=== PATIENT | female | born 1960 | race Caucasian/White ===

== ENCOUNTER 2020-03-13 17:50 | Emergency (ER) | payer OTHER, SELFPAY ==
[2020-03-13 17:54] VITALS: BP 145/89; PULSE 82; RESP 20; TEMP 37.3; O2SAT 99
--- NOTE | 2020-03-13 17:56 | ED.FEMALEGU ---
HPI - Female Genitourinary General Chief complaint: Nausea/Vomiting/Diarrhea Stated complaint: vomitting since 2am/back pain Time Seen by Provider: 03/13/20 18:10 Source: patient and RN notes reviewed Mode of arrival: ambulatory Limitations: no limitations History of Present Illness HPI Narrative: 60-year-old female presents with mid upper back pain, right scapula pain, nausea, vomiting. Reports the back pain started approximately 1 week ago, persistent vomiting started at 2:00 this morning. She denies dysuria, hematuria, urgency, frequency, fevers. MD elicited complaint: other (Mid back pain, vomiting) Related Data Allergies Allergy/AdvReac Type Severity Reaction Status Date / Time azithromycin Allergy Unknown Nausea Verified 03/13/20 18:09 levofloxacin Allergy Unknown Unknown Verified 03/13/20 18:09 Review of Systems Review of Systems: Narrative: CONSTITUTIONAL: Reports malaise. Denies chills, sweats, or fever. CARDIOVASCULAR: Denies chest pain, palpitations, or edema. RESPIRATORY: Denies cough or dyspnea. GASTROINTESTINAL: Denies abdominal pain, diarrhea. Reports nausea, vomiting, GENITOURINARY: Denies frequency, urgency, dysuria or hematuria. SKIN: Denies bruising, MUSCULOSKELETAL: Reports mid upper back pain, right scapular pain NEUROLOGIC: Denies numbness, weakness All systems reviewed & are unremarkable except as noted in HPI and below PMFSH Social History Social History Smoking status: Never smoker Second hand tobacco smoke exposure: No Alcohol intake: never Substance use: never Substance use type: does not use Gender identity (if verbalized by the patient): Female Spiritual care concerns: No Agree to blood products: Yes Comments At time of signature, agree with nursing past medical, surgical, social and family history. There is no relevant family history pertinent to the presenting complaint Exam Narrative: Exam Narrative: GENERAL: Well-appearing, well-nourished, and in no acute distress. HEAD: Normocephalic. EYES: PERRLA, conjunctivae clear. NECK: Supple. No lymphadenopathy CHEST: Clear to auscultation. No respiratory distress. HEART: Slow rate. No murmur heard. Normal peripheral pulses. ABDOMEN: Soft, nontender upon palpation, nondistended, normal active bowel sounds, no palpable or pulsatile masses, no guarding. No CVA tenderness Musculoskeletal: No midline back tenderness palpation, no bruising, redness SKIN: Warm, dry, no rash. NEURO: Alert and oriented x3. PSYCH: Normal mood and affect Course Course Emergency Course: Patient is aware of, understands and agrees to be seen in the emergency department in transfer via EMS. Portions of this record may have been created with voice recognition software Vital Signs Vital signs: Reviewed. Transfer Transfered to: [facility] [facility] Transportation: [facility] Transfer rationale: Abnormal EKG, atrial fibrillation, ST depression, nausea, upper back pain Accepting physician: GUADALUPE Rowley Transfer comments: [facility] MDM - Female Genitourinary MDM Narrative Medical decision making narrative: Patient's history, exam, EKG findings warrant further evaluation emergency department. Patient is being transferred via [facility] Differential Diagnosis Differential diagnosis: Likely other (Cardiac event, pyelonephritis, nephrolithiasis, musculoskeletal pain) Critical Care Time Critical Care Time Critical Care Time: No Discharge Plan Discharge Clinical Impression: Abnormal ECG Patient Disposition: Acute Care Hospital Condition: Stable Prescriptions: No Action buspirone 15 mg tablet 15 mg PO DAILY Qty: 90 RF: 1 omeprazole 20 mg capsule,delayed release(DR/EC) 20 mg PO DAILY Qty: 90 RF: 0 lisinopril 30 mg tablet 30 mg PO DAILY Qty: 90 RF: 3 desvenlafaxine succinate [Pristiq] 100 mg tablet extended release 24 hr 100 mg PO DAILY Qty: 90 RF: 0 Follow-up/Referrals: Oly Landa
[2020-03-13] MEDS: ONDANSETRON HCL ODT 4 MG TABLET PO (18:20)
[2020-03-13] MEDS: ASPIRIN 81 MG CHEWABLE TABLET 324 MG PO (18:27)
--- NOTE | 2020-03-13 18:31 | ECG_ITS ---
Measurements Intervals [place] Rate: 58 P: CT: 0 QRS: 30 QRSD: 85 T: 51 QT: 409 QTc: 403 Interpretive Statements SINUS RHYTHM CHANGES TO JUNCTIONAL RHYTHM BORDERLINE ST ABNORMALITY- ANTEROLATERAL LEADS BASELINE WANDER- I, II, AVR, AVL, AVF, V1-V6 ABNORMAL ECG Electronically Signed On 03-13-2020 20:51:24 CDT by Abraham Ramirez D.O.
== END 2020-03-13 18:39 | disposition short-term general hospital (02) ==
PROVIDERS: Emergency Provider Nurse Practitioner; PCP Family Medicine
DX: R94.31 Abnormal electrocardiogram [ECG] [EKG] (principal); I10 Essential (primary) hypertension
CPT/HCPCS: 81003; 93005; 99215; A9270; G0463

== ENCOUNTER 2020-03-13 19:09 | Inpatient (IN) | payer OTHER, SELFPAY ==
[2020-03-13] VITALS (8 sets, daily range): BP systolic 140–178; BP diastolic 78–99; PULSE 48–77; RESP 14–98; TEMP 36.8; O2SAT 96–100
--- NOTE | ~2020-03-13 | US_ITS ---
US right upper quadrant INDICATION: Acute cholecystitis. Back pain and nausea. PROCEDURE: Realtime right upper abdominal ultrasound. COMPARISON: CT dated 03/13/2020 FINDINGS: The pancreas is normal without focal mass or pancreatic ductal dilation. Liver echotexture is normal without focal mass or intrahepatic biliary dilatation. There is normal directional flow i n the portal vein. There is gallbladder wall thickening with gallstones and gallbladder sludge. Common bile duct measur es 4 mm. No sonographic Rivera's sign. IMPRESSION: 1: Cholelithiasis with gallbladder wall thickening, suspicious for cholecystitis. Correlate clinicall y. Reviewed, dictated and finalized at location A. IMPRESSION: 1: Cholelithiasis with gallbladder wall thickening, suspicious for cholecystiti s. Correlate clinically.
--- NOTE | ~2020-03-13 | CT_ITS ---
EXAMINATION: CT abdomen pelvis wo con DATE: 03/13/2020 21:26 INDICATION: Nausea and vomiting. TECHNIQUE: Computed tomography (CT) of the abdomen and pelvis was performed without intravenous contr ast. Automated exposure control and iterative reconstruction technique were employed. The dose-length product was 393.57 mGy-cm. COMPARISON: None. FINDINGS: The visualized portions of the lung bases demonstrate minimal atelectasis. No pleural effus ion. The heart size is normal. No pericardial effusion. There is a small sliding hiatal hernia. The l iver and spine are normal. The gallbladder is distended and demonstrates wall thickening, pericholecy stic fat stranding, and gallstones, consistent with acute cholecystitis. The pancreas, adrenal glands , and kidneys are normal. There is no urolithiasis. There are no dilated loops of bowel. The appendix is normal. There are no pathologically enlarged lymph nodes. There is no free intraperitoneal fluid. There is severe lower lumbar spondylosis. IMPRESSION: 1. Acute cholecystitis. 2. Small sliding hiatal hernia. Reviewed, dictated and finalized at location A.
--- NOTE | ~2020-03-13 | XR_ITS ---
EXAMINATION: XR chest 2V DATE: 03/13/2020 19:34 INDICATION: Upper back pain. Anxiety. TECHNIQUE: Frontal and lateral views of the chest were obtained. COMPARISON: None. FINDINGS: The chest demonstrates clear lungs without pneumonia, pleural effusion, or pneumothorax. Th e heart size is normal. There is a mild compression fracture in upper thoracic spine. IMPRESSION: 1. Age-indeterminate mild compression fracture in upper thoracic spine. Reviewed, dictated and finalized at location A.
--- NOTE | 2020-03-13 19:20 | ECG_ITS ---
Measurements Intervals [place] Rate: 72 P: [place]: 0 QRS: 14 QRSD: 85 T: 43 QT: 390 QTc: 429 Interpretive Statements SINUS RHYTHM WITH INTERMITTENT JUNCTIONAL RHYTHM BORDERLINE ST ABNORMALITY- ANT/INF LEADS BASELINE WANDER- III, AVF, V3 ABNORMAL ECG Electronically Signed On 03-13-2020 20:54:42 CDT by Abraham Ramirez D.O.
--- NOTE | 2020-03-13 19:26 | ED.NAVMDI ---
HPI - Nausea/Vomiting/Diarrhea General Chief complaint: Nausea/Vomiting/Diarrhea Stated complaint: nausea vomiting Time Seen by Provider: 03/13/20 19:26 Source: patient and old records reviewed Limitations: no limitations History of Present Illness HPI Narrative: 60-year-old female History of GERD hypertension and anxiety Presents with a week long history of upper back pain And today she has had nausea vomiting diarrhea and upper abdominal pain She was seen for this in urgent care and was to come to the ED for further evaluation Prior to leaving an EKG was done which showed previously unknown atrial fibrillation with a normal heart rate She denies chest pain or shortness of breath Most of her discomfort is now in the epigastrium MD elicited complaint: nausea, vomiting, diarrhea and abdominal pain Onset (ago): day(s) Associated nausea: Yes Associated abdominal pain: Yes Location of pain: epigastric Radiation: other (Back) Pain consistency: other (Worsening) Exacerbating factors: none Relieving factors: none Related Data Allergies Allergy/AdvReac Type Severity Reaction Status Date / Time azithromycin Allergy Unknown Nausea Verified 03/13/20 19:20 levofloxacin Allergy Unknown Unknown Verified 03/13/20 19:20 Review of Systems Review of Systems: All systems reviewed & are unremarkable except as noted in HPI and below Constitutional: Constitutional: Denies chills, Denies fever(s), Denies headache(s) and Denies night sweats Eyes: Eyes: Denies loss of vision and Denies other visual disturbances ENT: Denies headache(s), Denies hoarseness and Denies sore throat Cardiovascular: Cardiovascular: Denies chest pain, Denies leg edema, Denies palpitations and Denies dyspnea Respiratory: Respiratory: Denies cough, Denies dyspnea and Denies wheezing Gastrointestinal: Gastrointestinal: Reports no additional gastrointestinal complaints Genitourinary: Genitourinary: Denies hematuria, Denies urinary frequency, Denies nocturia and Denies dysuria Musculoskeletal: Musculoskeletal: Denies abnormal gait, Denies deformity, Denies joint swelling, Denies muscle weakness and Denies numbness Integumentary/Breasts: Skin/Breast: Denies rash, Denies unusual bruising and Denies wounds Neurologic: Denies abnormal gait, Denies headache(s), Denies focal weakness, Denies loss of vision and Denies numbness Psychiatric: Psychiatric: Reports no additional psychiatric complaints Endocrine: Endocrine: Denies fatigue and Denies palpitations Hematologic/Lymphatic: Hematologic/Lymphatic: Denies easy bleeding and Denies easy bruising Allergic/Immunologic: Allergic/Immunologic: Denies wheezing PMFSH Social History Social History Smoking status: Never smoker Second hand tobacco smoke exposure: No Alcohol intake: never Substance use: never Substance use type: does not use Gender identity (if verbalized by the patient): Female Spiritual care concerns: No Agree to blood products: Yes Exam Const: General: healthy appearing and well developed Nutritional Appearance: well nourished Orientation/consciousness: patient oriented x3 (alert) and Other orientation findings (Alert) Limitations: no limitations HENMT: Head: normocephalic and atraumatic Ears: external ears normal General nose exam: No nasal discharge present Face and sinus: face symmetric Mouth: Yes tongue normal and Yes moist mucous membranes Throat: other (No exudate, no erythema) Eyes: Conjunctivae: conjunctivae normal Sclera: sclerae normal EOM: EOMs intact bilaterally Neck: Neck: full ROM, no lymphadenopathy and supple Thyroid: thyroid normal Chest: Chest palpation & inspection: no tenderness Resp: Effort & Inspection: normal respiratory effort Auscultation: clear to auscultation bilaterally, no rales, no rhonchi, no wheezes and other (breath sounds equal) Cardio: Rate: regular rate Rhythm: regular rhyth
--- NOTE | 2020-03-13 19:53 | ECG_ITS ---
Measurements Intervals [place] Rate: 43 P: 65 [place]: 173 QRS: 19 QRSD: 86 T: 51 QT: 460 QTc: 391 Interpretive Statements SINUS BRADYCARDIA BORDERLINE ECG Electronically Signed On 03-13-2020 20:54:56 CDT by Abraham Ramirez D.O.
[2020-03-13 20:14] LABS: Basophils Percent Auto 0.2 % (0.2-1.2); Eosinophils Percent Auto 0.2 % (0-4.4); Hemoglobin 12.4 g/dL (12.0-15.0); Immature Granulocyte Absolute 0.03 K/mm3 (0.00-0.031); Immature Granulocyte Percent A 0.3 % (0-0.5); Lymphocytes Absolute Auto 1.34 K/mm3 (0.9-3.2); Lymphocytes Percent Auto 13.1 % (18.3-44.2); Mean Corpuscular HGB Conc 32.6 g/dl (32-36); Mean Corpuscular Hemoglobin 25.4 pg (26-34); Mean Corpuscular Volume 77.7 fl (80-100); Mean Platelet Volume 9.9 fl (7.4-10.4); Monocytes Absolute Auto 0.7 K/mm3 (0.1-0.6); Monocytes Percent Auto 6.5 % (2.6-8.5); Neutrophils Absolute Auto 8.2 K/mm3 (1.3-6.7); Neutrophils Percent Auto 79.7 % (45.5-73.1); Platelet Count Result 308 k/mm3 (150-375); Red Blood Count 4.89 M/mm3 (4.2-5.4); Red Cell Distribution Width 15.8 % (11.5-14.5); White Blood Count 10.3 K/mm3 (4.5-10.0)
[2020-03-13] MEDS: PANTOPRAZOLE SODIUM IV 40 MG VIAL IV PUSH (20:15)
[2020-03-13] MEDS: ONDANSETRON INJ 4 MG/2 ML VIAL IV PUSH ×2 (20:15→23:27)
[2020-03-13] MEDS: LACTATED RINGERS 1,000 ML 999 ML IV CONT ×2 (20:15→22:51)
[2020-03-13] MEDS: METOPROLOL TARTRATE INJ 5 MG/5 ML VIAL IV PUSH (20:18)
[2020-03-13 20:24] LABS: Partial Thromboplastin Time 24.1 SECONDS (22.3-36.8); Prothrombin Time 12.4 Seconds (11.1-14.7)
[2020-03-13 20:26] LABS: Anion Gap 12 mmol/L (8-16); Blood Urea Nitrogen 11 mg/dL (7-17); Calcium 10.2 mg/dL (8.4-10.2); Carbon Dioxide 24 mmol/L (22-30); Chloride 100 mmol/L (98-107); Estimated CRCL calculation 61 ml/min; Estimated Glomerular Filt Rate > 60; Glucose 122 mg/dL (65-105); Potassium 3.3 mmol/L (3.4-5.0); Sodium 136 mmol/L (137-145)
--- NOTE | 2020-03-13 21:39 | PC.NURSE ---
pt in room vomiting, c/o of back pain provider made aware no new orders
--- NOTE | 2020-03-13 21:46 | PC.NURSE ---
called lab at [phone] to add on Hepatic
[2020-03-13 21:57] LABS: Lipase 108 U/L (23-300)
[2020-03-13 21:58] LABS: Alanine Aminotransferase 23 U/L (4-35); Albumin Level 4.6 g/dL (3.5-5.1); Alkaline Phosphatase 162 U/L (38-126); Aspartate Amino Transferase 31 U/L (14-36); Bilirubin,Total 0.5 mg/dL (0.2-1.3)
[2020-03-13 23:02] LABS: Troponin I 0.031 ng/mL (0.000-0.034)
--- NOTE | 2020-03-13 23:47 | ADMGEN ---
This patient, Shania Loera, was admitted to Medical Room 261-01 at 1940. Patient/family oriented to hospital policies and general routines including ID bracelet, bed and alarms, visiting hours, pain management, procedures, bathroom and other care routines, personal items, smoking policy, room service/diet, and visiting hours. Valuables list has been completed. Information on how to activate the Rapid Response Team has been discussed. Patient/Family are encouraged to report perceived risks to care and to ask questions if they do not understand what they are told or what they should do.
--- NOTE | 2020-03-13 23:48 | ADMGEN ---
This patient, Shania Loera, was admitted to 2 Medical Room 261-01 correction pt arrived at 2340. Patient/family oriented to hospital policies and general routines including ID bracelet, bed and alarms, visiting hours, pain management, procedures, bathroom and other care routines, personal items, smoking policy, room service/diet, and visiting hours. Valuables list has been completed. Information on how to activate the Rapid Response Team has been discussed. Patient/Family are encouraged to report perceived risks to care and to ask questions if they do not understand what they are told or what they should do.
[2020-03-14] VITALS (11 sets, daily range): BP systolic 102–183; BP diastolic 56–76; PULSE 46–104; RESP 15–20; TEMP 36.4–36.9; O2SAT 98–100; BMI 28.0
[2020-03-14] MEDS: LACTATED RINGERS 1,000 ML 125 ML IV CONT (00:12)
--- NOTE | 2020-03-14 02:14 | PM.IMHP ---
H&P: HPI History of Present Illness Date/Time: 03/14/20 02:14 Chief complaint: acute cholecystitis, atrial fibrillation Narrative: this is a pleasant 60-year-old female with known history of hypertension, anxiety, and GERD who presented to the hospital with right upper quadrant abdominal discomfort, back pain, nausea and vomiting. The patient states that she has had increasing upper back pain for the past week. Yesterday she started to experience nausea and vomiting. the patient was seen at urgent care and was found to be in atrial fibrillation at the urgent care and referred to the hospital for further evaluation. In the ER the patient's converted from atrial fibrillation back to sinus rhythm. ER provider did administer beta-destinee to the patient. The patient denies any shortness of breath, cough, fever, chills, chest pain, palpitations, lower extremity swelling, diarrhea, or rectal bleeding. CT abdomen pelvis demonstrated acute cholecystitis. ER provider has consulted General surgery. Patient was treated with IV Zosyn in the ER. No other complaints. Review of Systems Review of Systems: All systems reviewed & are unremarkable except as noted in HPI and below PMFSH Past Medical History Medical History Anxiety and depression BMI 27.0-27.9,adult Breast cancer screening Colon cancer screening GERD (gastroesophageal reflux disease) Primary hypertension Surgical History Surgical History History of bilateral breast reduction surgery History of delivery History of thumb surgery [place] teeth removed Family History Family History Grandparent Carcinoma of colon Cerebrovascular accident Leukemia Mother Acute myocardial infarction Hypertension Father Acute myocardial infarction Hypertension Social History Social History Smoking status: Never smoker Second hand tobacco smoke exposure: No Alcohol intake: never Substance use: never Substance use type: does not use Gender identity (if verbalized by the patient): Female Spiritual care concerns: No Agree to blood products: Yes Meds Home Medications and Allergies Home Medications Medication Instructions Recorded Confirmed Type buspirone 15 mg tablet 15 mg PO DAILY #90 tablet 07/28/19 03/13/20 Rx omeprazole 20 mg capsule,delayed 20 mg PO DAILY #90 cap 12/25/19 03/13/20 Rx release desvenlafaxine succinate 100 mg 100 mg PO DAILY #90 tablet 03/10/20 03/13/20 Rx tablet,extended release 24 hr lisinopril 30 mg tablet 30 mg PO DAILY #90 tablet 03/10/20 03/13/20 Rx Allergies Allergy/AdvReac Type Severity Reaction Status Date / Time azithromycin Allergy Unknown Nausea Verified 03/13/20 23:50 levofloxacin Allergy Unknown Unknown Verified 03/13/20 23:50 Vital Signs Vital Signs - 24 hr 03/13/20 19:15 03/13/20 20:18 03/13/20 21:27 Temperature 36.8 C Pulse Rate 72 68 56 L Respiratory Rate 17 98 H 14 Blood Pressure 148/88 H 178/94 H 169/94 H Pulse Oximetry 100 98 98 03/13/20 22:06 03/13/20 22:24 03/13/20 23:24 Temperature Pulse Rate 58 L 48 L 77 Respiratory Rate 15 16 20 Blood Pressure 171/84 H 144/78 H 166/99 H Pulse Oximetry 97 96 99 03/13/20 23:37 03/13/20 23:50 03/14/20 00:00 Temperature 36.4 C Pulse Rate 50 L 49 L 46 L Respiratory Rate 20 20 Blood Pressure 140/90 183/67 H Pulse Oximetry 99 98 Exam Const: General: cooperative, no acute distress, alert and awake Nutritional Appearance: well nourished Orientation/consciousness: patient oriented x3 HENMT: Head: normal to inspection General nose exam: Normal external nose present Face and sinus: normal facial exam Mouth: Yes Normal oral and palatal mucosa present and Yes oropharynx normal Eyes: Pupils: Equal, round and re
[2020-03-14 03:07] LABS: Troponin I 0.038 ng/mL (0.000-0.034)
[2020-03-14] MEDS: ONDANSETRON INJ 4 MG/2 ML VIAL IV PUSH (05:25)
[2020-03-14 06:12] LABS: Basophils Percent Auto 0.2 % (0.2-1.2); Eosinophils Percent Auto 0.2 % (0-4.4); Hematocrit 33.4 % (37.0-47.0); Hemoglobin 10.6 g/dL (12.0-15.0); Immature Granulocyte Absolute 0.02 K/mm3 (0.00-0.031); Immature Granulocyte Percent A 0.2 % (0-0.5); Lymphocytes Absolute Auto 1.42 K/mm3 (0.9-3.2); Lymphocytes Percent Auto 16.7 % (18.3-44.2); Mean Corpuscular HGB Conc 31.7 g/dl (32-36); Mean Corpuscular Hemoglobin 25.1 pg (26-34); Mean Corpuscular Volume 79.1 fl (80-100); Mean Platelet Volume 10.3 fl (7.4-10.4); Monocytes Absolute Auto 0.7 K/mm3 (0.1-0.6); Monocytes Percent Auto 8.1 % (2.6-8.5); Neutrophils Absolute Auto 6.3 K/mm3 (1.3-6.7); Neutrophils Percent Auto 74.6 % (45.5-73.1); Platelet Count Result 264 k/mm3 (150-375); Red Blood Count 4.22 M/mm3 (4.2-5.4); White Blood Count 8.5 K/mm3 (4.5-10.0)
[2020-03-14 06:21] LABS: Alanine Aminotransferase 27 U/L (4-35); Albumin Level 3.8 g/dL (3.5-5.1); Alkaline Phosphatase 119 U/L (38-126); Anion Gap 6 mmol/L (8-16); Aspartate Amino Transferase 40 U/L (14-36); Bilirubin,Total 0.4 mg/dL (0.2-1.3); Blood Urea Nitrogen 10 mg/dL (7-17); Calcium 9.2 mg/dL (8.4-10.2); Carbon Dioxide 29 mmol/L (22-30); Chloride 102 mmol/L (98-107); Estimated CRCL calculation 54 ml/min; Estimated Glomerular Filt Rate > 60; Glucose 127 mg/dL (65-105); Lipase 73 U/L (23-300); Potassium 3.8 mmol/L (3.4-5.0); Sodium 137 mmol/L (137-145)
[2020-03-14] MEDS: LACTATED RINGERS 1,000 ML 75 ML IV CONT (09:08)
[2020-03-14] MEDS: PANTOPRAZOLE SODIUM IV 40 MG VIAL IV PUSH (09:09)
--- NOTE | 2020-03-14 10:43 | PM.IMPN ---
Progress Note: A&P Assessment and Plan (1) Acute cholecystitis: Code(s): K81.0 - Acute cholecystitis Status: Acute Assessment and Plan: Evident on CT a/p and RUQ US. AST mildly elevated. Currently having pain but is due for her medications. Still nauseous. WBC returned to WNL. Continue NPO status General Surgery consulted and appreciate input; will await further recommendations Continue IV Zosyn for now. Pain control as needed Monitor for improvement (2) New onset a-fib: Code(s): I48.91 - Unspecified atrial fibrillation Status: Resolved Assessment and Plan: Currently in sinus rhythm. Bradycardic overnight. Telemetry shows NSR with bradycardia overnight; not other ectopy. Asymptomatic. Troponins mildly elevated possibly secondary to strain from a. fib/acute illness. TSH WNL. Echo pending to be done. Per ER note, ER physician discussed with Dr. Mckenna and Dr. Landa and plan is to continue full dose Aspirin with follow up as outpatient. Monitor on tele overnight Should she develop chest pain/cardiac symptoms, will do repeat troponin level, ecg, CXR, etc. Full dose aspirin when off NPO status F/u with PCP/Cardiology as outpatient Will hold on beta destinee given bradycardia (3) Upper back pain: Code(s): M54.9 - Dorsalgia, unspecified Status: Acute Assessment and Plan: Likely secondary to thoracic vertebral compression fracture. Although patient notes pain is more on her right lower side of the chest, could be related to acute cholecystitis Continue pain control as needed. (4) GERD (gastroesophageal reflux disease): Qualifiers: Esophagitis presence: without esophagitis Qualified Code(s): K21.9 - Gastro-esophageal reflux disease without esophagitis Code(s): K21.9 - Gastro-esophageal reflux disease without esophagitis Status: Chronic Assessment and Plan: IV PPI therapy. (5) Primary hypertension: Code(s): I10 - Essential (primary) hypertension Status: Chronic Assessment and Plan: elevated. BP 150s sys this morning P.r.n. IV hydralazine with parameters as ordered. Will refrain from beta blockers as the patient has been bradycardic Resume home medications when off NPO status Subjective Date/time seen: 03/14/20 10:43 Interval history: Patient is a 60 yo F with history of anxiety/depression, HTN, and GERD who is here for evaluation of likely acute cholecystitis. Patient currently complaining of back pain, but on exam she notes the pain is on the right side, under her lower ribs. She notes n/v as well. She denies abdominal pain. She has some shakes and feeling cold. No other symptoms at the moment. Denies subjective fevers, headaches, dizziness, lightheadedness, changes in v/h, cp/palpitations, sob/cough, changes in BMs, dysuria, hematuria, cloudy urine, calf pain/swelling. Review of Systems Review of Systems: All systems reviewed & are unremarkable except as noted in HPI and below Exam Narrative: Exam Narrative: General: Patient resting on left side in bed. Mild discomfort. Family in room visiting HEENT: Normocephalic, EOMI, oral mucosa moist. Cardiovascular: Rate and rhythm are regular. No notable murmur, rub, or gallop. Respiratory: Lungs clear to auscultation all bradley. Non-labored breathing. Abdomen: Soft, TTP RUQ, non-distended, bowel sounds present. Extremities: Peripheral pulses intact. No edema. Neuro: No focal neurological deficits. Speech is clear. Objective Data Vital Signs Vital Signs: Last Vital Signs Temp 98.1 F 03/14/20 06:00 Pulse 52 L 03/14/20 06:00 Resp 18 03/14/20 06:00 BP 153/67 H 03/14/20 06:00 Pulse Ox 99 03/14/20 06:00 Intake/Output Intake/Output: Intake &
--- NOTE | 2020-03-14 11:38 | PM.CNGS ---
Assessment and Plan Assessment and plan (1) Cholelithiasis and cholecystitis without obstruction: Qualifiers: Cholelithiasis location: gallbladder Cholecystitis acuity: acute Qualified Code(s): K80.00 - Calculus of gallbladder with acute cholecystitis without obstruction Code(s): K80.10 - Calculus of gallbladder with chronic cholecystitis without obstruction Status: Acute Assessment and Plan: Patient is still uncomfortable with back pain nausea and vomiting. Will start scheduled dose of [place] or and increase p.r.n. doses of narcotics. She can try clear liquids and popsicles. Antiemetics are being given p.r.n.. She will also continue on Zosyn with IV fluids. I suspect she will need cholecystectomy on this admission. I discussed the procedure of laparoscopic cholecystectomy with the patient and her life partner. The procedure the risks and the usual recovery were discussed. All questions were answered. Hopefully she will improve with antibiotics and continued medical care. Recheck again tomorrow with repeat labs. (2) Hearing impairment: Qualifiers: Hearing loss type: unspecified Laterality: bilateral Qualified Code(s): H91.93 - Unspecified hearing loss, bilateral Code(s): H91.90 - Unspecified hearing loss, unspecified ear Status: Chronic Assessment and Plan: Corrected well with hearing aids. (3) New onset a-fib: Code(s): I48.91 - Unspecified atrial fibrillation Status: Resolved Assessment and Plan: Showed on EKG from urgent care center but not present on EKG in emergency room. Will see Cardiology for outpatient follow-up. (4) GERD (gastroesophageal reflux disease): Qualifiers: Esophagitis presence: without esophagitis Qualified Code(s): K21.9 - Gastro-esophageal reflux disease without esophagitis Code(s): K21.9 - Gastro-esophageal reflux disease without esophagitis Status: Chronic Assessment and Plan: Continue proton pump inhibitors (5) Primary hypertension: Code(s): I10 - Essential (primary) hypertension Status: Chronic Assessment and Plan: continue meds. History of Present Illness Consult details Consult date: 03/14/20 Reason for consult: gallstones ( Back pain with protracted nausea and vomiting) Narrative: Patient is a 60-year-old woman who has been having lower thoracic right-sided back pain since 2:00 a.m. Sunday morning. She ate some taco salad for supper Sunday night. She has never had pain like this before. Then later on Sunday, yesterday, she had protracted nausea and vomiting and could not keep anything down. She went to an urgent care center and was sent on to the emergency room. An EKG done at urgent care which showed atrial fib with a normal heart rate. In the emergency room she was not only having back pain but also some epigastric pain. She had tenderness in the epigastric area and was continuing to vomit. Chest x-ray showed indeterminate mild upper thoracic spine compression fractures but was otherwise negative. A CT scan of the abdomen and pelvis however showed a distended gallbladder with wall thickening and pericholecystic fat stranding with gallstones consistent with cholecystitis. The patient then had an ultrasound very early this morning that showed a thickened gallbladder wall gallstones and was also felt to be consistent with cholecystitis. [place] [address] in the emergency room but is decreased to 8.5 1000 this morning. Her liver enzymes were essentially normal. Patient had a repeat EKG in the emergency room which did not show atrial fibrillation. Cardiology was contacted and feels the patient can have this atrial fibrillation episode evaluated in the office as an outpatient. Seeing the patient this morning, she tells me she still has a lot of nausea and tries to vomit but has only dry heaves. She also requests some clear liquids. Partic
[2020-03-14] MEDS: IBUPROFEN IV 800 MG/200 ML 800 MG/200 ML BAG 400 MG IVPB ×2 (12:10→17:59)
[2020-03-14] MEDS: ASPIRIN 81 MG CHEWABLE TABLET 324 MG PO (12:10)
[2020-03-14] MEDS: ENOXAPARIN 30 MG/0.3 ML SYRINGE SUB-Q (22:09)
[2020-03-15] VITALS (10 sets, daily range): BP systolic 100–145; BP diastolic 49–69; PULSE 48–77; RESP 14–20; TEMP 36.1–36.7; O2SAT 95–100
[2020-03-15] MEDS: IBUPROFEN IV 800 MG/200 ML 800 MG/200 ML BAG 400 MG IVPB ×2 (00:03→06:19)
--- NOTE | 2020-03-15 02:15 | ECHO_ITS ---
Patient Info Name: Shania Loera Age: 60 years : 1960 Gender: Female Ht: 62 in Wt: 153 lbs BSA: 1.76 m2 HR: 68 bpm BP: 100 / 49 mmHg Technical Quality: Good Exam Date: 03/15/2020 12:02 PM Exam Location: [facility] Pulmonary Exam Room: 361 Patient Status: Inpatient Admit Date: 03/13/2020 Staff Ordering Physician: Loyd Pillai MD [employer] Operator: Belia Claudio RDCS Attending Provider: Norm Gandhi PA-C Referring Physician: Freya HARE; Exam Type: CA echo doppler color flow Study Info Indications - afib Complete two-dimensional, color flow and Doppler transthoracic echocardiogram is performed. Summary 1. Complete two-dimensional, color flow and Doppler transthoracic echocardiogram is performed. 2. Left ventricular chamber dimension is normal. 3. Left ventricular systolic function is normal, estimated at 60-65%. 4. The left ventricular diastolic function is grade I diastolic dysfunction. 5. E/e' 11 is mildly elevated. 6. Left atrial chamber dimension is mildly enlarged. 7. The mitral valve has mildly calcified annulus. 8. There is trace mitral valve regurgitation. 9. There is trace tricuspid valve regurgitation. 10. No pulmonary hypertension, estimated pulmonary arterial systolic pressure is 29 mmHg. Left Ventricle E/e' 11 is mildly elevated. Left ventricular chamber dimension is normal. Left ventricular systolic function is normal, estimated at 60-65%. The left ventricular diastolic function is grade I diastolic dysfunction. Right Ventricle Right ventricular chamber dimension is normal. Right ventricular systolic function is normal. Left Atria Left atrial chamber dimension is mildly enlarged. Right Atria Right atrial chamber dimension is normal. Aortic Valve The aortic valve is trileaflet. There is no aortic valve stenosis. There is no aortic valve regurgitation. Pulmonic Valve There is no pulmonic regurgitation. Mitral Valve The mitral valve has mildly calcified annulus. There is no mitral valve stenosis. There is trace mitral valve regurgitation. Tricuspid Valve There is trace tricuspid valve regurgitation. No pulmonary hypertension, estimated pulmonary arterial systolic pressure is 29 mmHg. Pericardium/Pleural There is no pericardial effusion. Inferior Vena Cava Normal inferior vena cava with >50% collapse upon inspiration consistent with normal right atrial pressure, 5 mmHg. Aorta The aortic root size at the sinus of Valsalva is normal. Left Ventricular Outflow Tract Name Value Normal LVOT 2D LVOT Diameter 2.0 cm LVOT Doppler LVOT Peak Gradient 4 mmHg LVOT Mean Gradient 2 mmHg LVOT VTI 20 cm LVOT VTI/AV VTI Ratio 0.7 LVOT Stroke Volume 62 ml LVOT CO 11.6 l/min LVOT CI 6.6 l/min/m2 Pulmonic Valve Name Value Normal
[2020-03-15 06:37] LABS: Hematocrit 29.9 % (37.0-47.0); Hemoglobin 9.4 g/dL (12.0-15.0); Mean Corpuscular HGB Conc 31.4 g/dl (32-36); Mean Corpuscular Hemoglobin 25.5 pg (26-34); Mean Corpuscular Volume 81.3 fl (80-100); Mean Platelet Volume 10.7 fl (7.4-10.4); Platelet Count Result 210 k/mm3 (150-375); Red Blood Count 3.68 M/mm3 (4.2-5.4); Red Cell Distribution Width 16.6 % (11.5-14.5); White Blood Count 5.3 K/mm3 (4.5-10.0)
[2020-03-15 06:51] LABS: Anion Gap 5 mmol/L (8-16); Blood Urea Nitrogen 11 mg/dL (7-17); Calcium 8.7 mg/dL (8.4-10.2); Carbon Dioxide 28 mmol/L (22-30); Chloride 106 mmol/L (98-107); Estimated CRCL calculation 45 ml/min; Estimated Glomerular Filt Rate 51; Glucose 91 mg/dL (65-105); Magnesium 1.8 mg/dL (1.6-2.3); Potassium 3.2 mmol/L (3.4-5.0); Sodium 139 mmol/L (137-145)
--- NOTE | 2020-03-15 07:06 | PM.PNGS ---
Progress Note: A&P Assessment and Plan (1) Cholelithiasis and cholecystitis without obstruction: Qualifiers: Cholelithiasis location: gallbladder Cholecystitis acuity: acute Qualified Code(s): K80.00 - Calculus of gallbladder with acute cholecystitis without obstruction Code(s): K80.10 - Calculus of gallbladder with chronic cholecystitis without obstruction Status: Acute Assessment and Plan: much improved. Will start some solid food and advance to low-fat diet. Continue IV antibiotics. If pain recurs will need to proceed with laparoscopic cholecystectomy. If resolves, patient may be able to go home and come back later for cholecystectomy. hypokalemia and increase in serum creatinine noted. Will stop IV ibuprofen. Will change fluids to normal saline and potassium. Recheck labs again tomorrow. (2) New onset a-fib: Code(s): I48.91 - Unspecified atrial fibrillation Status: Resolved Assessment and Plan: Echocardiogram ordered (3) Hearing impairment: Qualifiers: Hearing loss type: unspecified Laterality: bilateral Qualified Code(s): H91.93 - Unspecified hearing loss, bilateral Code(s): H91.90 - Unspecified hearing loss, unspecified ear Status: Chronic (4) Primary hypertension: Code(s): I10 - Essential (primary) hypertension Status: Chronic (5) GERD (gastroesophageal reflux disease): Qualifiers: Esophagitis presence: without esophagitis Qualified Code(s): K21.9 - Gastro-esophageal reflux disease without esophagitis Code(s): K21.9 - Gastro-esophageal reflux disease without esophagitis Status: Chronic (6) Anxiety and depression: Code(s): F41.9 - Anxiety disorder, unspecified; F32.9 - Major depressive disorder, single episode, unspecified Status: Acute Subjective Subjective Date/Time Seen: 03/15/20 07:06 Patient reports: feels better, pain is less ( Pain is gone, still some soreness) and tolerating liquids well Review of Systems Review of Systems: All systems reviewed & are unremarkable except as noted in HPI and below Constitutional: Constitutional: Denies headache(s) Cardiovascular: Cardiovascular: Denies chest pain and Denies dyspnea Respiratory: Respiratory: Denies cough and Denies dyspnea Gastrointestinal: Gastrointestinal: Reports as per HPI, Denies abdominal pain, Denies GI cramping, Denies nausea and Denies vomiting Exam Const: General: comfortable and no acute distress; No confusion Orientation/consciousness: patient oriented x3 and No confusion GI: GI Palp: Yes Soft to palpation, Yes Tenderness to palpation present (GI) ( mild right upper quadrant tenderness), No Guarding due to palpation present (GI), No Hernia present, No Palpable mass present and No Rebound tenderness present Auscultation: normal bowel sounds Neuro: General: patient oriented x3, no focal motor deficits and No confusion Extrem: General: no calf tenderness and no edema Psych: Affect: normal affect Insight: Good insight present (Psych) Judgement: Good judgement present (Psych) Objective Data Vital Signs Vital Signs: Vital Signs - 24 hr 03/14/20 08:00 03/14/20 10:00 03/14/20 12:00 Temperature 36.9 C Pulse Rate 55 L 64 81 Respiratory Rate 15 Blood Pressure 152/76 H Pulse Oximetry 100 03/14/20 14:00 03/14/20 14:02 03/14/20 16:00 Temperature 36.9 C 36.9 C Pulse Rate 74 74 104 H Respiratory Rate 16 16 Blood Pressure 109/56 L 109/56 L Pulse Oximetry 100 100 03/14/20 18:00 03/14/20 20:00 03/15/20 00:00 Temperature 36.6 C 36.5 C 36.4 C Pulse Rate 72 67 68 Respiratory Rate 15 18 18 Blood Pressure 123/56 L 102/64 119/57 L Pulse Oximetry 100 99 95 03/15/20 04:00 03/15/20 06:23 Temperature 36.4 C L Pulse Rate 62 68 Respiratory Rate 18 Blood Pressure 100/49 L Pulse Oximetry 98 Intake/Output Intake/Output: Intake & Output 03/12/20 03/13/20 03/14/20 03/15/20
[2020-03-15] MEDS: ONDANSETRON INJ 4 MG/2 ML VIAL IV PUSH ×2 (09:20→21:26)
[2020-03-15] MEDS: KCL 40 MEQ/0.9% SOD CHL 1,000 ML 100 ML IV CONT ×2 (09:25→21:18)
[2020-03-15] MEDS: PANTOPRAZOLE 40 MG TABLET PO (10:32)
[2020-03-15] MEDS: busPIRone HCL 5 MG TABLET 15 MG PO (10:32)
[2020-03-15] MEDS: lisinopriL 10 MG TABLET 30 MG PO (10:33)
[2020-03-15] MEDS: ENOXAPARIN 40 MG/0.4 ML SYRINGE SUB-Q (10:33)
--- NOTE | 2020-03-15 10:54 | PM.IMPN ---
Progress Note: A&P Assessment and Plan (1) Acute cholecystitis: Code(s): K81.0 - Acute cholecystitis Status: Acute Assessment and Plan: Evident on CT a/p and RUQ US. AST mildly elevated. Currently having pain and nauseous this morning after having her eggs. Nursing to call Dr. Rucker to update him on the patient. WBC WNL General Surgery consulted and appreciate input; will await further recommendations Continue IV Zosyn for now. Pain control as needed Monitor for improvement (2) New onset a-fib: Code(s): I48.91 - Unspecified atrial fibrillation Status: Resolved Assessment and Plan: Currently in sinus rhythm. Bradycardic overnight. Telemetry shows NSR with bradycardia overnight and into this morning; no other ectopy. Asymptomatic. Troponins mildly elevated possibly secondary to strain from a. fib/acute illness. TSH WNL. Echo pending to be done. Per ER note, ER physician discussed with Dr. Mckenna and Dr. Landa and plan is to continue full dose Aspirin with follow up as outpatient. Monitor on tele for now Should she develop chest pain/cardiac symptoms, will do repeat troponin level, ecg, CXR, etc. Full dose aspirin when tolerating diet F/u with PCP/Cardiology as outpatient Will hold on beta destinee given bradycardia (3) Upper back pain: Code(s): M54.9 - Dorsalgia, unspecified Status: Acute Assessment and Plan: Likely secondary to thoracic vertebral compression fracture. Although patient notes pain is more on her right lower side of the chest, could be related to acute cholecystitis Continue pain control as needed. (4) GERD (gastroesophageal reflux disease): Qualifiers: Esophagitis presence: without esophagitis Qualified Code(s): K21.9 - Gastro-esophageal reflux disease without esophagitis Code(s): K21.9 - Gastro-esophageal reflux disease without esophagitis Status: Chronic Assessment and Plan: IV PPI therapy. (5) Primary hypertension: Code(s): I10 - Essential (primary) hypertension Status: Chronic Assessment and Plan: elevated. BP 120s sys this morning P.r.n. IV hydralazine with parameters as ordered. Will refrain from beta blockers as the patient has been bradycardic Resume home medications once tolerating diet (6) Anxiety and depression: Code(s): F41.9 - Anxiety disorder, unspecified; F32.9 - Major depressive disorder, single episode, unspecified Status: Acute Assessment and Plan: Patient very anxious and upset this morning. Her home medications were resumed today Continue home medications if tolerating diet Will add low dose Ativan as needed for anxiety Monitor Subjective Date/time seen: 03/15/20 10:54 Interval history: Patient is a 60 yo F with history of anxiety/depression, HTN, and GERD who is here for evaluation of likely acute cholecystitis. Patient upset at the moment; she is crying and notes she is very anxious about everything going on. States she just wants to have surgery this hospital stay so she does not go home, get sick, and have to come back. She tried eggs this morning but got very nauseous at that time; no vomiting and states nausea is improving. Also notes right sided abdominal pain/chest pain and mid back pain. Denies subjective fevers/chill/sweats, headaches, dizziness, lightheadedness, changes in v/h, cp/palpitations, sob/cough, changes in BMs, dysuria, hematuria, cloudy urine, calf pain/swelling. Review of Systems Review of Systems: All systems reviewed & are unremarkable except as noted in HPI and below Exam Narrative: Exam Narrative: General: Patient sitting upright in bed at time of visit. Upset, crying, and anxious appearing.
--- NOTE | 2020-03-15 17:25 | PHAR ---
HOME MED VERIFIED DESVENLAFAXINE ER 100MG TAKE 1 TABLET DAILY
--- NOTE | 2020-03-15 17:51 | PC.NURSE ---
Moved patient from 261 to 256 for access to a shower and window per patient's request.
[2020-03-15] MEDS: CHLORHEXIDINE GLUCONATE 4% SOL 120 ML BTL 1 APPLIC TOPICAL (23:00)
[2020-03-16] VITALS (19 sets, daily range): BP systolic 125–173; BP diastolic 63–81; PULSE 20–73; RESP 14–51; TEMP 36.1–37.2; O2SAT 94–100
[2020-03-16 05:45] LABS: Hematocrit 27.2 % (37.0-47.0); Hemoglobin 8.5 g/dL (12.0-15.0); Mean Corpuscular HGB Conc 31.3 g/dl (32-36); Mean Corpuscular Hemoglobin 24.9 pg (26-34); Mean Corpuscular Volume 79.8 fl (80-100); Mean Platelet Volume 10.3 fl (7.4-10.4); Platelet Count Result 211 k/mm3 (150-375); Red Blood Count 3.41 M/mm3 (4.2-5.4); Red Cell Distribution Width 16.3 % (11.5-14.5)
--- NOTE | 2020-03-16 05:54 | PC.NURSE ---
S bar faxed to surgery. at bedside and 2 toe rings removed.
[2020-03-16 06:01] LABS: Anion Gap 4 mmol/L (8-16); Blood Urea Nitrogen 7 mg/dL (7-17); Calcium 8.5 mg/dL (8.4-10.2); Carbon Dioxide 26 mmol/L (22-30); Chloride 110 mmol/L (98-107); Estimated CRCL calculation 49 ml/min; Estimated Glomerular Filt Rate 57; Glucose 92 mg/dL (65-105); Magnesium 1.8 mg/dL (1.6-2.3); Potassium 3.7 mmol/L (3.4-5.0); Sodium 140 mmol/L (137-145)
[2020-03-16] MEDS: LACTATED RINGERS 1,000 ML 30 ML IV CONT ×2 (06:18→09:02)
--- NOTE | 2020-03-16 07:05 | WPDANESEPPF ---
Anes - Initial Pre Proc Eval Procedure: Operation Date: 03/16/20 07:30 Proposed Procedures p Laparoscopic Cholecystectomy - Leandro Rucker MD Date/Time: 03/16/20 07:05 Surgeon: Norm Gandhi PA-C Pre Op Diagnosis: acute cholecystitis, atrial fibrillation Patient Data Age: 60 Gender: F Height: 5 ft 2 in Weight: 69.5 kg Last Vital Signs Temp 36.8 C 03/16/20 06:22 Pulse 62 03/16/20 06:22 Resp 18 03/16/20 06:22 BP 153/79 H 03/16/20 06:22 Pulse Ox 99 03/16/20 06:22 Allergies Allergy/AdvReac Type Severity Reaction Status Date / Time azithromycin Allergy Unknown Nausea Verified 03/16/20 06:42 levofloxacin Allergy Unknown Unknown Verified 03/16/20 06:42 Home Medications Medication Instructions Recorded Confirmed Type buspirone 15 mg tablet 15 mg PO DAILY #90 tablet 07/28/19 03/13/20 Rx omeprazole 20 mg capsule,delayed 20 mg PO DAILY #90 cap 12/25/19 03/13/20 Rx release desvenlafaxine succinate 100 mg 100 mg PO DAILY #90 tablet 03/10/20 03/13/20 Rx tablet,extended release 24 hr lisinopril 30 mg tablet 30 mg PO DAILY #90 tablet 03/10/20 03/13/20 Rx Laboratory Tests 03/15/20 03/16/20 03/16/20 12:33 05:21 05:21 WBC 5.0 K/mm3 K/mm3 (4.5-10.0) RBC 3.41 M/mm3 L M/mm3 (4.2-5.4) Hgb 8.5 g/dL L g/dL (12.0-15.0) Hct 27.2 % L % (37.0-47.0) MCV 79.8 fl L fl (80-100) MCH 24.9 pg L pg (26-34) MCHC 31.3 g/dl L g/dl (32-36) RDW 16.3 % H % (11.5-14.5) Plt Count 211 k/mm3 k/mm3 (150-375) MPV 10.3 fl fl (7.4-10.4) Sodium 140 mmol/L mmol/L (137-145) Potassium 3.7 mmol/L mmol/L (3.4-5.0) Chloride 110 mmol/L H mmol/L (98-107) Carbon Dioxide 26 mmol/L mmol/L (22-30) Anion Gap 4 mmol/L L mmol/L (8-16) BUN 7 mg/dL mg/dL (7-17) Creatinine 1.00 mg/dL mg/dL (0.7-1.0) Estim Creat Clear Calc 49 ml/min ml/min Estimated GFR 57 L (59 - ) Glucose 92 mg/dL mg/dL (65-105) Calcium 8.5 mg/dL mg/dL (8.4-10.2) Magnesium 1.8 mg/dL mg/dL (1.6-2.3) Blood Type A Positive Antibody Screen Negative Patient hx anesthesia problems: post op nausea/vomiting Family hx anesthesia problems: none PMFSH Past Medical History Medical History Anxiety and depression BMI 27.0-27.9,adult Breast cancer screening Colon cancer screening GERD (gastroesophageal reflux disease) Primary hypertension Surgical History Surgical History History of bilateral breast reduction surgery History of delivery History of thumb surgery [place] teeth removed Family History Family History Grandparent Carcinoma of colon Cerebrovascular accident Leukemia Mother Acute myocardial infarction Hypertension Father Acute myocardial infarction Hypertension Social History Social History Smoking status: Never smoker Second hand tobacco smoke exposure: No Alcohol intake: never Substance use: never Substance use type: does not use Gender identity (if verbalized by the patient): Female Spiritual care concerns: No Agree to blood products: Yes Anes - Eval Final PreProcedure Day of Procedure 03/16/20 07:05 Patient weight: overweight Heart: regular rate and rhythm Lungs: clear to auscultation Airway: Mallampati scale Neurological: alert and oriented Last oral intake: >/= 8 hours ASA classification: II Emergent: no Anesthetic plan: proceed Anesthesia type and monitoring: general ETT and standard monitoring Informed Consent: The patient's anesthetic plan and its attendant risks and benefits were discussed
[2020-03-16] MEDS: SCOPOLAMINE 1.5 MG PATCH TRANSDERM (07:25)
--- NOTE | 2020-03-16 07:29 | WPDHPUPDATE1 ---
History and Physical Update Update Date/Time: 03/16/20 07:29 History and Physical has been reviewed, including an updated exam of the patient. There are NO changes in the patient's condition. Risks, benefits, and alternatives have been discussed and questions answered. Patient agrees to proceed with procedure.
[2020-03-16] MEDS: BUPIVACAINE/EPINEPHRINE 0.5% 30 ML VIAL INFILTRATE (08:06)
[2020-03-16] MEDS: HEMOSTATIC MATRIX (SURGIFLO with THROMBIN) KIT 1 KIT XX (08:36)
--- NOTE | 2020-03-16 08:57 | PM.PROC ---
Procedure Note - Detailed Date of procedure: 03/16/20 Pre-op diagnosis: acute cholecystitis, atrial fibrillation Acute cholecystitis with gangrenous changes and cholelithiasis Post-op diagnosis: other (Choledocholithiasis with gangrenous acute cholecystitis with stones with cystic duct obstruction) Procedure performed: Laparoscopic cholecystectomy Description of procedure: The patient was taken to surgery and induced into general anesthesia. The abdomen was prepped and draped. Trocars were placed in the usual fashion using 0.5% Marcaine with epinephrine and applied Medical optical trocars. 5 mm camera was used. The gallbladder was surrounded by adhesions. These were taken down and an acutely inflamed, thickened, gangrenous gallbladder was noted. Besides the patches of greenish gallbladder wall, there were also patches of erythematous gallbladder wall. There was no evidence of a ruptured gallbladder. Once these adhesions were taken down, I then proceeded to decompress the gallbladder with a laparoscopic aspirator. Bloody fluid was returned. The gallbladder did not decompress well. The contents were very thickened and there were numerous stones in the gallbladder. We then retracted the gallbladder anterosuperiorly and freed the adhesions to the infundibulum and distal gallbladder. Traction was placed on the infundibulum and dissection was started. The inflammation was very severe and bloody. There was acute inflammation with plume and smoke making the dissection more difficult. Eventually the cystic duct and cystic artery were dissected out clearly. The gallbladder was dissected off the liver at its lower 3rd and critical view was achieved. The cystic duct and cystic artery were then securely clipped and divided. We then placed further traction on the infundibulum of the gallbladder and started to dissected free from the peritoneal attachments of the liver. This was also quite difficult. The wall and peritoneum were very edematous and highly vascular. Initially the dissection was done bluntly but then we switched to hook cautery. Entry into the gallbladder was made and some large black pigmented stones were removed. These were removed from the abdomen except for 2 very large stones. We then had to dissect the upper most aspect of the gallbladder from an intrahepatic location in the liver. Some liver surface came off with the gallbladder. This raw liver surface did do some blood. Eventually the gallbladder was completely removed. The gallbladder was placed in an Endo-Catch bag as were the 2 large stones that had come out. The gallbladder and stones were then extricated in the Endo-Catch bag through the epigastric trocar site. The epigastric trocar incision had to be significantly enlarged to accommodate the gallbladder with its thickened wall and multiple stones. Eventually the gallbladder was removed. The epigastric trocar was replaced and we used a towel clip to occlude the skin so that re-insufflation could take place. We then turned our attention to the gallbladder fossa which was, as I mentioned, quite bloody. We suctioned away all the blood and then used cautery on the gallbladder fossa. This provided considerable hemostasis but there was still oozing from raw liver surface. Surgiflo was then administered to the gallbladder fossa. Some gentle pressure was held with a Ray-Wilber sponge. Once the Ray-Wilber was removed, hemostasis was quite good. A small amount of additional cautery was used on the liver edge. I then repeatedly irrigated and suctioned the gallbladder fossa and right upper quadrant. Nearly all the old clot and debris were removed. Once the right upper quadrant appeared satisfactory, I placed a 19 [place] Ivan drain in the right upper quadrant in the subhepatic space. The drain was sutured to the skin with 2 0 silk. We looked a final time at the gallbladder fossa and areas of dissection. All looked good. We then evacuated CO2
--- NOTE | 2020-03-16 11:20 | PM.IMPN ---
Progress Note: A&P Assessment and Plan (1) Acute cholecystitis: Code(s): K81.0 - Acute cholecystitis Status: Acute Assessment and Plan: Evident on CT a/p and RUQ US. AST mildly elevated. No leukocytosis. She is s/p cholecystectomy performed today by Dr. Rucker. Pain is well controlled at this time. General Surgery consulted and appreciate input Continue IV Zosyn for now. Pain control as needed Advance diet per General surgery recommendations (2) New onset a-fib: Code(s): I48.91 - Unspecified atrial fibrillation Status: Resolved Assessment and Plan: Currently in sinus bradycardia. Telemetry shows NSR with bradycardia in the upper 50s; no other ectopy. Asymptomatic. Troponins mildly elevated possibly secondary to strain from a. fib/acute illness. TSH WNL. Echo performed showing normal EF, grade 1 diastolic dysfunction, and trace MR/TR. Per ER note, ER physician discussed with Dr. Mckenna and Dr. Landa and plan is to continue full dose Aspirin with follow up as outpatient. Continue to monitor on telemetry Should she develop chest pain/cardiac symptoms, will do repeat troponin level, EKG, CXR, etc. Full dose aspirin has been initiated F/u with PCP/Cardiology as outpatient Will hold on beta destinee given bradycardia (3) Upper back pain: Code(s): M54.9 - Dorsalgia, unspecified Status: Acute Assessment and Plan: Likely secondary to thoracic vertebral compression fracture. Although patient notes pain is more on her right lower side of the chest, could be related to acute cholecystitis. she has no pain today. Continue analgesics as needed. (4) GERD (gastroesophageal reflux disease): Qualifiers: Esophagitis presence: without esophagitis Qualified Code(s): K21.9 - Gastro-esophageal reflux disease without esophagitis Code(s): K21.9 - Gastro-esophageal reflux disease without esophagitis Status: Chronic Assessment and Plan: Asymptomatic at this time. continue IV PPI therapy. (5) Primary hypertension: Code(s): I10 - Essential (primary) hypertension Status: Chronic Assessment and Plan: Blood pressure reviewed today in generally well controlled in the 130-150 systolic. Will resume lisinopril as patient is no longer NPO. Discontinue p.r.n. hydralazine Will refrain from beta blockers as the patient has been bradycardic (6) Anxiety and depression: Code(s): F41.9 - Anxiety disorder, unspecified; F32.9 - Major depressive disorder, single episode, unspecified Status: Acute Assessment and Plan: Mood is stable at this time. Continue Buspar and desvenlafaxine Continue low dose Ativan as needed for anxiety Subjective Date/time seen: 03/16/20 11:20 Interval history: Date of service: 03/16/2020 Ms. Loera is a 60-year-old female with a history of anxiety, depression, and hypertension who is seen in follow-up for acute cholecystitis and new onset atrial fibrillation. She is s/p cholecystectomy performed today by Dr. Rucker. She tolerated procedure well and her pain is well controlled at this time. She currently rates as a 6/10 in her right upper quadrant. She had a bowel movement this morning prior to surgery. She is drinking a Pepsi. She has not eaten anything yet. She denies cough, shortness of breath, chest pain, palpitations, nausea, vomiting, fever, chills, dizziness, lightheadedness, weakness. She does feel very tired and requests to rest. She has no additional concerns. Review of Systems Review of Systems: Narrative: A 12 point review of systems was reviewed with pertinent positives and negatives as per HPI. Exam Narrative: Exam Narrative: Ms. Loera is a well-nourished, well-appearing 60-year-old female who is lying supine in bed. She appears comfortable and is in no acute respiratory distress. HR 62, BP 153/79, RR 18, T 98.3?, 99% on room air Neuro
--- NOTE | 2020-03-16 11:31 | PC.NURSE ---
Pt is requesting to wait and take morning meds after anesthesia wears off a bit more- md aware and ok with this
--- NOTE | 2020-03-16 11:32 | PC.NURSE ---
Returned from OR per [ Denis]. Report received from [[id number] ].
[2020-03-16] MEDS: lisinopriL 10 MG TABLET 30 MG PO (13:55)
[2020-03-16] MEDS: ASPIRIN 81 MG CHEWABLE TABLET 324 MG PO (13:56)
[2020-03-16] MEDS: busPIRone HCL 5 MG TABLET 15 MG PO (13:57)
[2020-03-16] MEDS: PANTOPRAZOLE 40 MG TABLET PO (13:57)
[2020-03-16] MEDS: KCL 40 MEQ/0.9% SOD CHL 1,000 ML 100 ML IV CONT (14:55)
[2020-03-17] VITALS (9 sets, daily range): BP systolic 137–158; BP diastolic 78–87; PULSE 54–81; RESP 16–20; TEMP 36.2–36.6; O2SAT 96–100
[2020-03-17] MEDS: KCL 40 MEQ/0.9% SOD CHL 1,000 ML 100 ML IV CONT (02:04)
[2020-03-17 05:33] LABS: Hematocrit 27.6 % (37.0-47.0); Hemoglobin 8.5 g/dL (12.0-15.0); Mean Corpuscular HGB Conc 30.8 g/dl (32-36); Mean Corpuscular Hemoglobin 24.9 pg (26-34); Mean Corpuscular Volume 80.9 fl (80-100); Mean Platelet Volume 10.2 fl (7.4-10.4); Platelet Count Result 213 k/mm3 (150-375); Red Blood Count 3.41 M/mm3 (4.2-5.4); Red Cell Distribution Width 16.5 % (11.5-14.5)
[2020-03-17 05:51] LABS: Anion Gap 3 mmol/L (8-16); Blood Urea Nitrogen 5 mg/dL (7-17); Calcium 8.5 mg/dL (8.4-10.2); Carbon Dioxide 25 mmol/L (22-30); Chloride 109 mmol/L (98-107); Estimated CRCL calculation 54 ml/min; Estimated Glomerular Filt Rate > 60; Glucose 134 mg/dL (65-105); Potassium 4.3 mmol/L (3.4-5.0); Sodium 137 mmol/L (137-145)
[2020-03-17] MEDS: ASPIRIN 81 MG CHEWABLE TABLET 324 MG PO (08:05)
[2020-03-17] MEDS: lisinopriL 10 MG TABLET 30 MG PO (08:07)
[2020-03-17] MEDS: PANTOPRAZOLE 40 MG TABLET PO (08:07)
[2020-03-17] MEDS: busPIRone HCL 5 MG TABLET 15 MG PO (08:07)
[2020-03-17] MEDS: ENOXAPARIN 40 MG/0.4 ML SYRINGE SUB-Q (08:08)
--- NOTE | 2020-03-17 13:06 | WPDANESPN ---
Anes - Prog Note Post-Op Date/Time: 03/17/20 13:06 Cardiovascular status: normal Respiratory status: normal Airway patency: baseline Mental status: baseline Post-Op hydration status: normal Vital Signs: Last Vital Signs Temp 36.3 C L 03/17/20 05:43 Pulse 55 L 03/17/20 12:00 Resp 20 03/17/20 05:43 BP 148/78 H 03/17/20 05:43 Pulse Ox 96 03/17/20 05:43 Pain Score (VAS): 5 I/O: Intake & Output 03/16/20 03/17/20 03/17/20 23:59 07:59 15:59 Intake Total 290 1240 940 Output Total 460 Balance 290 780 940 Laboratory Tests 03/17/20 05:13 03/17/20 05:13 03/17/20 03/17/20 05:13 05:13 WBC 8.0 RBC 3.41 L Hgb 8.5 L Hct 27.6 L MCV 80.9 MCH 24.9 L MCHC 30.8 L RDW 16.5 H Plt Count 213 MPV 10.2 Sodium 137 Potassium 4.3 Chloride 109 H Carbon Dioxide 25 Anion Gap 3 L BUN 5 L Creatinine 0.90 Estim Creat Clear Calc 54 Estimated GFR > 60 Glucose 134 H Calcium 8.5 Post-procedural complaints: none Patient Feedback: Patient satisfied with anesthetic care.
--- NOTE | 2020-03-17 13:30 | PM.PNGS ---
Progress Note: A&P Assessment and Plan (1) Cholelithiasis and cholecystitis without obstruction: Qualifiers: Cholelithiasis location: gallbladder Cholecystitis acuity: acute Qualified Code(s): K80.00 - Calculus of gallbladder with acute cholecystitis without obstruction Code(s): K80.10 - Calculus of gallbladder with chronic cholecystitis without obstruction Status: Acute Assessment and Plan: doing well postop day 1. Will increase activity and saline lock her IV fluid. Advance diet to low-fat diet. Continue IV Zosyn antibiotics another day. Probably DC JINA drain tomorrow and discharge. (2) Hearing impairment: Qualifiers: Hearing loss type: unspecified Laterality: bilateral Qualified Code(s): H91.93 - Unspecified hearing loss, bilateral Code(s): H91.90 - Unspecified hearing loss, unspecified ear Status: Chronic (3) New onset a-fib: Code(s): I48.91 - Unspecified atrial fibrillation Status: Resolved Subjective Subjective Date/Time Seen: 03/17/20 13:30 Post Op day: 1 Patient reports: no new complaints, feels better, tolerating liquids well, no flatus, no bowel movement and afebrile Exam Const: General: comfortable and no acute distress; No confusion Orientation/consciousness: patient oriented x3 and No confusion GI: Inspection: non-distended and incision ( Incisions healing well, serosanguineous fluid in JINA drain) GI Palp: Yes Soft to palpation, Yes Tenderness to palpation present (GI), No Guarding due to palpation present (GI) and No Rebound tenderness present Auscultation: normal bowel sounds Neuro: General: patient oriented x3, no focal motor deficits and No confusion Extrem: General: no calf tenderness and no edema Psych: Affect: normal affect Insight: Good insight present (Psych) Judgement: Good judgement present (Psych) Objective Data Vital Signs Vital Signs: Vital Signs - 24 hr 03/16/20 14:00 03/16/20 16:00 03/16/20 20:00 Temperature 36.6 C Pulse Rate 56 L 54 L 68 Respiratory Rate 20 Blood Pressure 152/70 H Pulse Oximetry 99 03/16/20 21:36 03/16/20 22:00 03/17/20 00:00 Temperature 36.3 C L Pulse Rate 68 50 L 59 L Respiratory Rate 20 20 Blood Pressure 160/71 H Pulse Oximetry 99 99 03/17/20 04:00 03/17/20 05:43 03/17/20 08:00 Temperature 36.3 C L Pulse Rate 81 58 L 64 Respiratory Rate 20 Blood Pressure 148/78 H Pulse Oximetry 96 03/17/20 12:00 Temperature Pulse Rate 55 L Respiratory Rate Blood Pressure Pulse Oximetry Intake/Output Intake/Output: Intake & Output 03/14/20 03/15/20 03/16/20 03/17/20 23:59 23:59 23:59 23:59 Intake Total 2059 2709 2069 2180 Output Total 2049 1175 10 460 Balance 10 1535 2060 1720 Meds/Results Medications: Active Medications Generic Name Dose Route Start Last Admin Trade Name Freq PRN Reason Stop Dose Admin Acetaminophen 500 mg 03/14/20 11:33 Tylenol Tablet PO Q6H PRN Mild Pain (1-3) or Fever Hydrocodone Bitart/Acetaminophen 1 tab 03/15/20 07:02 03/16/20 20:04 [place] 5-325 Mg PO 1 tab Q4H PRN Administration Pain Rated 4-6 Hydrocodone Bitart/Acetaminophen 1 tab 03/15/20 07:02 03/17/20 04:13 [place] 10-325 Mg PO 1 tab Q6H PRN Administration Pain Rated 7-10 Aspirin 324 mg 03/14/20 08:00 03/17/20 08:05 Aspirin Chewable PO 324 mg DAILY@0800 ETTA Administration Buspirone HCl 15 mg 03/15/20 09:00 03/17/20 08:07 Buspar PO 15 mg DAILY ETTA Administration Diphenhydramine HCl 25 mg 03/14/20 11:33 Benadryl Inj IV PUSH Q6H PRN Itching Enoxaparin Sodium 40 mg 03/15/20 09:00 03/17/20 08:08 Lovenox SUB-Q 40 mg DAILY ETTA Administration Piperacillin/Tazobactam/Dextrose 3.375 gm in 50 mls @ 100 mls/hr 03/14/20 04:00 03/17/20 11:14 Zosyn 3.375 Gm/D5w 50ml Pm IVPB Infused Q6H ETTA Infusion Lisinopril 30 mg 03/15/20 09:00 03/17/20 08:07 Ana Luisa
--- NOTE | 2020-03-17 13:48 | PM.IMPN ---
Progress Note: A&P Assessment and Plan (1) Acute cholecystitis: Code(s): K81.0 - Acute cholecystitis Status: Acute Assessment and Plan: Evident on CT a/p and RUQ US. AST mildly elevated. No leukocytosis. She is s/p cholecystectomy performed on 03/16/[address] Rucker. Pain is well controlled at this time. General Surgery consulted and appreciate input Continue IV Zosyn, initiated on 03/13/20. Pain control as needed Advance to low fat diet JINA drain care per surgery Hopeful discharge tomorrow (2) New onset a-fib: Code(s): I48.91 - Unspecified atrial fibrillation Status: Resolved Assessment and Plan: Currently in sinus bradycardia. Telemetry shows NSR with bradycardia in the upper 50s; no other ectopy. Asymptomatic. Troponins mildly elevated possibly secondary to strain from a. fib/acute illness. TSH WNL. Echo performed showing normal EF, grade 1 diastolic dysfunction, and trace MR/TR. Per ER note, ER physician discussed with Dr. Mckenna and Dr. Landa and plan is to continue full dose Aspirin with follow up as outpatient. Continue to monitor on telemetry Should she develop chest pain/cardiac symptoms, will do repeat troponin level, EKG, CXR, etc. Full dose aspirin has been initiated F/u with PCP/Cardiology as outpatient Will hold on beta destinee given bradycardia (3) Upper back pain: Code(s): M54.9 - Dorsalgia, unspecified Status: Acute Assessment and Plan: Likely secondary to thoracic vertebral compression fracture. Although patient notes pain is more on her right lower side of the chest, may have been due to acute cholecystitis. She has no pain today. Continue analgesics as needed. (4) GERD (gastroesophageal reflux disease): Qualifiers: Esophagitis presence: without esophagitis Qualified Code(s): K21.9 - Gastro-esophageal reflux disease without esophagitis Code(s): K21.9 - Gastro-esophageal reflux disease without esophagitis Status: Chronic Assessment and Plan: Asymptomatic at this time. continue IV PPI therapy. (5) Primary hypertension: Code(s): I10 - Essential (primary) hypertension Status: Chronic Assessment and Plan: Blood pressure reviewed today and is generally well controlled in the 140s systolic. Continue lisinopril PRN IV hydralazine has been discontinued Will refrain from beta blockers as the patient has been bradycardic (6) Anxiety and depression: Code(s): F41.9 - Anxiety disorder, unspecified; F32.9 - Major depressive disorder, single episode, unspecified Status: Acute Assessment and Plan: Mood is stable at this time and patient appears less anxious. Continue Buspar and desvenlafaxine Continue low dose Ativan as needed for anxiety. Has not required any doses since 03/15. Subjective Date/time seen: 03/17/20 13:48 Interval history: Date of service: 03/16/2020 Ms. Loera is a 60-year-old female with a history of anxiety, depression, and hypertension who is seen in follow-up for acute cholecystitis and new onset atrial fibrillation. She is s/p cholecystectomy performed on 03/16/[address] Rucker. she is feeling better today. Pain is improved but still quite significant and her right upper quadrant. At rest she is comfortable and rates her pain as a 5/10. If she is moving or bending her pain is a 9/10. She is tolerating her diet. Denies abdominal bloating or cramping. She had a bowel movement yesterday evening. She denies palpitations or chest pain. Denies WARE or orthopnea. She reports that she does feel a bit short of breath if she is talking a lot. She denies cough or congestion. Denies headache, dizziness, lightheadedness, or fatigue. She has no additional concerns at this time. Review of Systems Review of Systems: Narrative: Twelve systems were reviewed with pertinent positives and negatives as per HPI. Exam Narra
[2020-03-18] VITALS: PULSE 73
[2020-03-18 04:00] VITALS: PULSE 74
[2020-03-18 05:49] LABS: Hematocrit 27.9 % (37.0-47.0); Hemoglobin 8.8 g/dL (12.0-15.0); Mean Corpuscular HGB Conc 31.5 g/dl (32-36); Mean Corpuscular Hemoglobin 25.4 pg (26-34); Mean Corpuscular Volume 80.4 fl (80-100); Mean Platelet Volume 10.4 fl (7.4-10.4); Platelet Count Result 227 k/mm3 (150-375); Red Blood Count 3.47 M/mm3 (4.2-5.4); Red Cell Distribution Width 16.6 % (11.5-14.5); White Blood Count 6.9 K/mm3 (4.5-10.0)
[2020-03-18 05:51] VITALS: BP 150/80; PULSE 65; RESP 20; TEMP 36.4; O2SAT 96
[2020-03-18 05:57] LABS: Anion Gap 5 mmol/L (8-16); Blood Urea Nitrogen 4 mg/dL (7-17); Calcium 9.1 mg/dL (8.4-10.2); Carbon Dioxide 26 mmol/L (22-30); Chloride 103 mmol/L (98-107); Estimated CRCL calculation 54 ml/min; Estimated Glomerular Filt Rate > 60; Glucose 105 mg/dL (65-105); Potassium 4.1 mmol/L (3.4-5.0); Sodium 134 mmol/L (137-145)
--- NOTE | 2020-03-18 07:27 | PM.PNGS ---
Progress Note: A&P Assessment and Plan (1) Cholelithiasis and cholecystitis without obstruction: Qualifiers: Cholelithiasis location: gallbladder Cholecystitis acuity: acute Qualified Code(s): K80.00 - Calculus of gallbladder with acute cholecystitis without obstruction Code(s): K80.10 - Calculus of gallbladder with chronic cholecystitis without obstruction Status: Acute Assessment and Plan: continues to do well. Okay to discharge from my perspective. Will continue antibiotics by mouth. Follow up in my office in 2 weeks. Discharge instructions written. (2) Upper back pain: Code(s): M54.9 - Dorsalgia, unspecified Status: Resolved Assessment and Plan: Resolved. Likely due to acute cholecystitis. (3) Hearing impairment: Qualifiers: Hearing loss type: unspecified Laterality: bilateral Qualified Code(s): H91.93 - Unspecified hearing loss, bilateral Code(s): H91.90 - Unspecified hearing loss, unspecified ear Status: Chronic (4) New onset a-fib: Code(s): I48.91 - Unspecified atrial fibrillation Status: Resolved Assessment and Plan: Outpatient follow-up with cardiology Subjective Subjective Date/Time Seen: 03/18/20 07:27 Post Op day: 2 Patient reports: no new complaints, feels better, tolerating a regular diet and afebrile Exam Const: General: comfortable and no acute distress; No confusion Orientation/consciousness: patient oriented x3 and No confusion GI: Inspection: non-distended and incision (Healing well, serosanguineous JINA output) GI Palp: Yes Soft to palpation, Yes Tenderness to palpation present (GI), No Guarding due to palpation present (GI) and No Rebound tenderness present Auscultation: normal bowel sounds Neuro: General: patient oriented x3, no focal motor deficits and No confusion Extrem: General: no calf tenderness and no edema Psych: Affect: normal affect Insight: Good insight present (Psych) Judgement: Good judgement present (Psych) Objective Data Vital Signs Vital Signs: Vital Signs - 24 hr 03/17/20 08:00 03/17/20 12:00 03/17/20 14:00 Temperature 36.2 C L Pulse Rate 64 55 L 54 L Respiratory Rate 16 Blood Pressure 137/85 Pulse Oximetry 100 03/17/20 16:00 03/17/20 20:00 03/17/20 22:00 Temperature 36.6 C Pulse Rate 63 55 L 59 L Respiratory Rate 20 Blood Pressure 158/87 H Pulse Oximetry 100 03/18/20 00:00 03/18/20 04:00 03/18/20 05:51 Temperature 36.4 C L Pulse Rate 73 74 65 Respiratory Rate 20 Blood Pressure 150/80 H Pulse Oximetry 96 Intake/Output Intake/Output: Intake & Output 03/15/20 03/16/20 03/17/20 03/18/20 23:59 23:59 23:59 23:59 Intake Total 2710 2070 3610 120 Output Total 1175 10 1250 1020 Balance 1535 2060 2360 -900 Meds/Results Medications: Active Medications Generic Name Dose Route Start Last Admin Trade Name Freq PRN Reason Stop Dose Admin Acetaminophen 500 mg 03/14/20 11:33 Tylenol Tablet PO Q6H PRN Mild Pain (1-3) or Fever Hydrocodone Bitart/Acetaminophen 1 tab 03/15/20 07:02 03/17/20 16:14 [place] 5-325 Mg PO 1 tab Q4H PRN Administration Pain Rated 4-6 Hydrocodone Bitart/Acetaminophen 1 tab 03/15/20 07:02 03/17/20 04:13 [place] 10-325 Mg PO 1 tab Q6H PRN Administration Pain Rated 7-10 Aspirin 324 mg 03/14/20 08:00 03/17/20 08:05 Aspirin Chewable PO 324 mg DAILY@0800 ETTA Administration Buspirone HCl 15 mg 03/15/20 09:00 03/17/20 08:07 Buspar PO 15 mg DAILY ETTA Administration Diphenhydramine HCl 25 mg 03/14/20 11:33 Benadryl Inj IV PUSH Q6H PRN Itching Enoxaparin Sodium 40 mg 03/15/20 09:00 03/17/20 08:08 Lovenox SUB-Q 40 mg DAILY ETTA Administration Piperacillin/Tazobactam/Dextrose 3.375 gm in 50 mls @ 100 mls/hr 03/14/20 04:00 03/18/20 03:40 Zosyn 3.375 Gm/D5w 50ml Pm IVPB 100 mls/hr Q6H ETTA Administra
--- NOTE | 2020-03-18 07:39 | PM.PNGS ---
Subjective Subjective Date/Time Seen: 03/18/20 07:39 Patient reports: still having pain Objective Data Vital Signs Vital Signs: Vital Signs - 24 hr 03/17/20 08:00 03/17/20 12:00 03/17/20 14:00 Temperature 36.2 C L Pulse Rate 64 55 L 54 L Respiratory Rate 16 Blood Pressure 137/85 Pulse Oximetry 100 03/17/20 16:00 03/17/20 20:00 03/17/20 22:00 Temperature 36.6 C Pulse Rate 63 55 L 59 L Respiratory Rate 20 Blood Pressure 158/87 H Pulse Oximetry 100 03/18/20 00:00 03/18/20 04:00 03/18/20 05:51 Temperature 36.4 C L Pulse Rate 73 74 65 Respiratory Rate 20 Blood Pressure 150/80 H Pulse Oximetry 96 Intake/Output Intake/Output: Intake & Output 03/15/20 03/16/20 03/17/20 03/18/20 23:59 23:59 23:59 23:59 Intake Total 2710 2070 3610 170 Output Total 1175 10 1250 1020 Balance 1535 2060 2360 -850 Meds/Results Medications: Active Medications Generic Name Dose Route Start Last Admin Trade Name Freq PRN Reason Stop Dose Admin Acetaminophen 500 mg 03/14/20 11:33 Tylenol Tablet PO Q6H PRN Mild Pain (1-3) or Fever Hydrocodone Bitart/Acetaminophen 1 tab 03/15/20 07:02 03/17/20 16:14 [place] 5-325 Mg PO 1 tab Q4H PRN Administration Pain Rated 4-6 Hydrocodone Bitart/Acetaminophen 1 tab 03/15/20 07:02 03/17/20 04:13 [place] 10-325 Mg PO 1 tab Q6H PRN Administration Pain Rated 7-10 Aspirin 324 mg 03/14/20 08:00 03/17/20 08:05 Aspirin Chewable PO 324 mg DAILY@0800 ETTA Administration Buspirone HCl 15 mg 03/15/20 09:00 03/17/20 08:07 Buspar PO 15 mg DAILY ETTA Administration Diphenhydramine HCl 25 mg 03/14/20 11:33 Benadryl Inj IV PUSH Q6H PRN Itching Enoxaparin Sodium 40 mg 03/15/20 09:00 03/17/20 08:08 Lovenox SUB-Q 40 mg DAILY ETTA Administration Piperacillin/Tazobactam/Dextrose 3.375 gm in 50 mls @ 100 mls/hr 03/14/20 04:00 03/18/20 07:00 Zosyn 3.375 Gm/D5w 50ml Pm IVPB Infused Q6H ETTA Infusion Lisinopril 30 mg 03/15/20 09:00 03/17/20 08:07 Prinivil PO 30 mg DAILY ETTA Administration Lorazepam 0.5 mg 03/15/20 10:59 03/15/20 17:17 Ativan Inj IV PUSH 0.5 mg Q6H PRN Administration Anxiety Morphine Sulfate 2 mg 03/14/20 11:33 Morphine Sulfate Inj IV PUSH Q2H PRN Pain Rated 4-6 Morphine Sulfate 4 mg 03/14/20 11:33 Morphine Sulfate Inj IV PUSH Q2H PRN Pain Rated 7-10 Naloxone HCl 0.1 mg 03/14/20 11:33 Narcan IV PUSH Q2M PRN Opiate Reversal Ondansetron HCl 4 mg 03/13/20 22:16 03/15/20 21:26 Zofran Inj IV PUSH 4 mg Q4H PRN Administration Nausea Pantoprazole Sodium 40 mg 03/15/20 09:00 03/17/20 08:07 Protonix PO 40 mg QAM ETTA Administration Trazodone HCl 50 mg 03/17/20 13:29 Desyrel PO HS PRN Insomnia Radiology Results: ITS Impressions Chest X-Ray 03/13/20 19:39 IMPRESSION: 1. Age-indeterminate mild compression fracture in upper thoracic spine. Abdomen/Pelvis CT 03/13/20 21:27 IMPRESSION: 1. Acute cholecystitis. 2. Small sliding hiatal hernia. Upper Quadrant Ultrasound 03/14/20 08:09 IMPRESSION: 1: Cholelithiasis with gallbladder wall thickening, suspicious for cholecystitis. Correlate clinically. Labs Labs: Laboratory Results - last 24 hr 03/18/20 03/18/20 05:24 05:24 WBC 6.9 RBC 3.47 L Hgb 8.8 L Hct 27.9 L MCV 80.4 MCH 25.4 L MCHC 31.5 L RDW 16.6 H Plt Count 227 MPV 10.4 Sodium 134 L Potassium 4.1 Chloride 103 Carbon Dioxide 26 Anion Gap 5 L BUN 4 L Creatinine 0.90 Estim Creat Clear Calc 54 Estimated GFR > 60 Glucose 105 Calcium 9.1 Quality VTE Prophylaxis VTE prophylaxis: mechanical ordered
[2020-03-18] MEDS: ASPIRIN 81 MG CHEWABLE TABLET 324 MG PO (07:44)
--- NOTE | 2020-03-18 09:38 | PM.DS ---
DS: Admitting Diagnosis Admitting Diagnosis Admitting Diagnosis: acute cholecystitis, atrial fibrillation DS: Discharge Diagnosis Discharge Diagnosis (1) Acute cholecystitis: Code(s): K81.0 - Acute cholecystitis Status: Acute Assessment and Plan: Evident on CT a/p and RUQ US. She underwent cholecystectomy on 03/16/[address] Rucker. JINA drain was placed following surgery and removed on 03/18/2020. She completed 6 days of IV Zosyn. She will continue p.o. Amoxicillin for 3 days as an outpatient. Her pain remained well-controlled; she was given a short course of [place] for pain control at home. She advanced to a low-fat diet and was able to tolerate. She will follow-up with Dr. Rucker in 2 weeks. (2) New onset a-fib: Code(s): I48.91 - Unspecified atrial fibrillation Status: Resolved Assessment and Plan: EKG showed evidence of atrial fibrillation which she has never been diagnosed with. ED physician discussed with PCP and Dr. Mckenna. It was recommended that she begin daily full-dose aspirin and follow-up with cardiology as an outpatient. She remained in sinus bradycardia through the duration of her stay. Telemetry reviewed daily with heart rate in the upper 50s. She remained asymptomatic. Troponins were mildly elevated possibly secondary to strain from a. fib/acute illness. TSH WNL. Echo showed normal EF, grade 1 diastolic dysfunction, and trace MR/TR. no beta-destinee was initiated given her mild bradycardia. Continue aspirin and follow-up with Dr. Mckenna in 1-2 weeks. (3) Upper back pain: Code(s): M54.9 - Dorsalgia, unspecified Status: Resolved Assessment and Plan: CXR showed age indeterminate mild compression fracture and upper thoracic spine, which may have been etiology for pain. More likely that pain was due to acute cholecystitis as pain resolved following surgery. (4) GERD (gastroesophageal reflux disease): Qualifiers: Esophagitis presence: without esophagitis Qualified Code(s): K21.9 - Gastro-esophageal reflux disease without esophagitis Code(s): K21.9 - Gastro-esophageal reflux disease without esophagitis Status: Chronic Assessment and Plan: Asymptomatic. Continue omeprazole (5) Primary hypertension: Code(s): I10 - Essential (primary) hypertension Status: Chronic Assessment and Plan: Blood pressure was review daily and remained generally well controlled. Continue lisinopril. Beta-destinee not initiated due to bradycardia as above. (6) Anxiety and depression: Code(s): F41.9 - Anxiety disorder, unspecified; F32.9 - Major depressive disorder, single episode, unspecified Status: Acute Assessment and Plan: Patient was quite anxious prior to surgery which improved with low-dose Ativan. She did not require any additional acute anxiolytics following surgery. Continue Buspar and desvenlafaxine DS: Summary Hospital Course Reason for hospitalization: acute cholecystitis Hospital Course: Date of admission: 03/13/2020 Date of discharge: 03/18/2020 Shania Loera is a 60-year-old female with a history of anxiety, depression, hypertension, and hearing impairment who presented to the emergency department on 03/13/2020 after being referred from [facility] due to nausea, vomiting, diarrhea, and epigastric pain. At presentation, vital signs stable, HR 72, WBC 10.3, potassium 3.3, glucose 122, CXR showing age-indeterminate mild compression fracture of upper thoracic spine, and CT a/ P showing acute cholecystitis with small sliding hiatal hernia. she was admitted to the hospitalist service and was seen in consultation by General surgery. Please see above for further details. She underwent cholecystectomy on 03/16/2020. She tolerated the procedure well. She was able to advance her diet. She began feeling much better and requested discharge home where she lives with her . Given her
== END 2020-03-18 10:20 | disposition home or self-care (01) | DRG 419 ==
LOC: ANHED 22:41 → ANH2MED 03-14 07:25 → ANH3MEDSUR 10-07 07:59 → ANH2MED 10-07 07:59
PROVIDERS: Emergency Medicine; Physician Assistant; Surgery; Admitting Provider Family Medicine; Emergency Provider Emergency Medicine; PCP Family Medicine; Visit Provider Physician Assistant
PROC: 0FT44ZZ Resection of Gallbladder, Percutaneous Endoscopic Approach (ICD-10-PCS; CPT 47562; principal; 2020-03-16 07:30)
DX: K80.11 Calculus of gallbladder with chronic cholecystitis with obstruction (principal); K82.A1 Gangrene of gallbladder in cholecystitis; I48.91 Unspecified atrial fibrillation; K21.9 Gastro-esophageal reflux disease without esophagitis; I10 Essential (primary) hypertension; M54.89 Other dorsalgia; F41.8 Other specified anxiety disorders; H91.93 Unspecified hearing loss, bilateral; E87.6 Hypokalemia
CPT/HCPCS: 36415; 71046; 74176; 76705; 80048; 80053; 80076; 81003; 83690; 83735; 84443; 84484; 85025; 85027; 85610; 85730; 86850; 86900; 86901; 88304; 93005; 93306; 96361; 96374; 96375; 99285; A9270; C1713; C9113; J1100; J1650; J1741; J2060; J2250; J2405; J2543; J2704; J2710; J3010; J7030; J7120

== ENCOUNTER → 2021-01-27 13:41 | Outpatient (CLI) | payer OTHER, SELFPAY ==
--- NOTE | ~2021-01-27 | MM_ITS ---
EXAMINATION: MM screening carolyn BI w toro HISTORY: Screening mammogram TECHNIQUE: Craniocaudal and mediolateral oblique 3-D tomosynthesis images were obtained and synthetic 2-D images were generated. CAD analysis was submitted and interpreted. COMPARISON: 09/16/2013 BREAST PARENCHYMAL COMPOSITION: There are scattered areas of fibroglandular density. FINDINGS: Mild stable ........fibroglandular asymmetry. Right benign calcifications. There is no evid ence of suspicious mass, calcification, or architectural distortion to suggest malignancy in either b reast. There has been no suspicious interval change. IMPRESSION: 1. No mammographic evidence of malignancy. 2. Recommend routine screening mammography in one year. BI-RADS Category 2: Benign finding(s). Reviewed, dictated and finalized at location A.
== END ==
PROVIDERS: Visit Provider Obstetrics & Gynecology
DX: Z12.31 Encounter for screening mammogram for malignant neoplasm of breast (principal)
CPT/HCPCS: 77063; 77067

== ENCOUNTER 2024-07-29 12:16 | Outpatient (CLI) | payer OTHER, SELFPAY ==
--- OUTSIDE RECORDS SUMMARY | 2024-07-29 12:59 | XMS_ITS | Clinical Summary ---
Author Organization [facility] Address [address] [place] [address]. [place] [address] [place] [address] Care Team Providers Care Detailer Name Role Phone Unavailable Primary Care Provider Unavailabl e Social History Tobacco Use Types Packs/Day Years Used Date Smoking Tobacco: Never Assessed Comments Unknown Sex and Gender Information Value Date Recorded Sex Assigned at Not on file Legal Sex Female 7:26 PM CDT Gender Identity Not on file Sexual Orientation Not on file Last Filed Vital Signs Vital Sign Reading Time Taken Comments Blood Pressure 142/93 04/22/2012 9:44 AM CDT Pulse 72 04/22/2012 9:44 AM CDT Temperature - - Respiratory Rate - - Oxygen Saturation - - Inhaled Oxygen Concentration - - Weight 81.2 kg (179 lb) 04/22/2012 9:44 AM CDT Height 157.5 cm (5' 2 ) 04/22/2012 9:44 AM CDT Body Mass Index 32.74 04/22/2012 9:44 AM CDT Plan of Treatment Health Maintenance Due Date Last Done Comments Cervical Cancer Screening Pa p Smear (Age 30 to 64) Every 3 Years 1961 Colorectal Cancer Screening Colonoscopy (10 Years) 1961 Annual Physical 02/04/1964 Hepatitis C 1979 DTaP, Tdap and Td Vaccines ( 1 - Tdap) 02/04/1980 Cervical Cancer Screening Pa p with HPV Testing (Age 30 to 64) Every 5 Years 1991 Cervical Cancer Screening with HPV 1991 Mammogram Screening 2001 Zoster Vaccines (1 of 2) 2011 COVID-19 Vaccine ( - 2023-2 5 season) 2024 Influenza Adult (#1) 2024 RSV Immunization or 60+ Years (1 - 1-dose 75+ series) 02/04/2036 Meningococcal B Vaccine Aged Out No l onger eligible based on patient's age to complete this topic Meningococcal Vaccine Aged Out No victor m keli eligible based on patient's age to complete this topic Pneumococcal Vaccine: Pediat rics (0 to 5 Years) and At-Risk Patients (6 to 64 Years) Aged Out No longer eligible b ased on patient's age to complete this topic RSV Immunizations Under 20 Months Aged Out No longer eligible based on patient's age to complete this topic
--- OUTSIDE RECORDS SUMMARY | 2024-07-29 12:59 | XMS_ITS | Continuity of Care Document ---
Author Organization [facility] Address [address] [place] [address] Phone Care Team Providers Care Customer Relations Assistant Name Role Phone Abimael Power Unavailable Unavailable Advance Directives Directive Yes / No Effective Date File Name No Information Encounters Encounter Description Practice Location Reason(s) For Visit Diagnoses Date Provider Providers Copied on Encounter [facility], [id number] [place] [address] [address], [place], [place], [id number], [place] tel:[phone] [facility] No Information [address] , [address], [place], [address], [place]. tel:[phone] Family History Family Member Type Diagnosis Age At Onset No Information Payers Payer name Insurance type Covered democrat ID Authoriza tion(s) No Information Social History Type Description Quantity Date Captured Comments Sex Female Smoking Status No Information Chief Complaint And Reason For Visit No Information Reason For Referral Reason For Referral No Information History Of Present Illness Encounter Date Complaint History Of Prese nt Illness No Information Functional Status Date Functional Assessmen t No Information Instructions Date Instruction Additional Infor mation No Information Assessments Type Assessment Date No Information Patient Care Teams Name Effective Dates (start - stop) Status Members No Information
--- OUTSIDE RECORDS SUMMARY | 2024-07-29 12:59 | XMS_ITS | Referral Summary ---
[facility] Address [address] [place] [address] Care Team Providers Care Operational Risk Consultant Name Role Phone Oly Hernandez MD Primary Care Provider [phone]- [phone] Allergies No known active allergies Medications omeprazole (PriLOSEC) 20 mg capsule 03/22/2020 Active lisinopriL (PRINIVIL,ZESTRI L) 30 mg tablet 20 mg 03/10/2020 Act maggie desvenlafaxine ER (PRISTIQ) 100 mg 24 hr tablet 03/10/2020 Act maggie aspirin 325 mg tablet Take 325 mg by mouth daily Active busPIRone (BUSPAR) 15 mg tabletIndication s:Generalized Anxiety Disorder Take 15 mg by mouth 3 (three) times a day Active Active Problems Problem Noted Date Diagnosed Date Abnormal ECG 04/29/2020 Atrial fibrillation (CMS/HCC) 04/29/2020 Social History Tobacco Use Types Packs/Day Years Used Date Smoking Tobacco: Never Smokeless Tobacco: Never Personal Safety Answer Date Recorded Getting School Help Needed Not on file 09/14 Comments Unknown Sex and Gender Information Value Date Recorded Sex Assigned at Not on file 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 Gender Identity Not on file Sexual Orientation Not on file Last Filed Vital Signs Vital Sign Reading Time Taken Comments Blood Pressure 124/74 04/29/2020 3:37 PM CDT Pulse 73 04/29/2020 3:37 PM CDT Temperature - - Respiratory Rate - - Oxygen Saturation 99% 04/29/2020 3:37 PM CDT Inhaled Oxygen Concentration - - Weight 66.4 kg (146 lb 4.8 oz) 04/29/2020 3:37 P M CDT Height 157.5 cm (5' 2 ) 04/29/2020 3:37 PM CDT Body Mass Index 26.76 04/29/2020 3:37 PM CDT Plan of Treatment Not on file Insurance [employer] [facility] PPO Care Teams Operational Risk Consultant Relationship Specialty Start Date End Date Oly Hernandez MD PCP - General Family Practice 04/29/20
--- OUTSIDE RECORDS SUMMARY | 2024-07-29 12:59 | XMS_ITS | Clinical Summary ---
[facility] Address [address] [place] [address] Care Team Providers Care [employer] Crewmember Name Role Phone Oly Hernandez MD Primary Care Provider [phone]- [phone] Allergies No known active allergies Medications omeprazole [...] Abnormal ECG 04/29/2020 Atrial fibrillation (CMS/HCC) 04/29/2020 Surgical History Surgery Date Site/Laterality Comments SECTION GALLBLADDER SURGERY REDUCTION MAMMAPLASTY Medical History Medical History Date Comments Hypertension Family History Medical History Relation Name Comments No Known Problems Father No Known Problems Mother No Known Problems Sister Relation Name Status Comments Father Alive Mother Alive Sister Alive Social History Tobacco Use Types Packs/Day Years Used Date Smoking Tobacco: Never Smokeless Tobacco: Never Personal Safety Answer Date Recorded Getting School Help Needed Not on file 09/14 Comments Unknown Sex and Gender Information Value Date Recorded Sex Assigned at Not on file 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
[2024-07-29 14:23] LABS: Influenza A QL RT-PCR Negative (Negative); Influenza B QL RT-PCR Negative (Negative); RSV RNA, RT-PCR Positive (Negative); SARS-CoV-2 RNA PCR Negative (Negative)
== END 2024-07-29 12:17 | disposition home or self-care (01) ==
PROVIDERS: PCP Family Medicine; Visit Provider Family Medicine
DX: R05.9 Cough, unspecified (principal); Z20.822 Contact with and (suspected) exposure to COVID-19
CPT/HCPCS: 87637